=== PATIENT | female | born 1995 | race Caucasian/White ===

== ENCOUNTER 2017-03-20 10:27 | Emergency (ER) | payer OTHER ==
[~2017-03-20] VITALS: Ht 162.6 cm; Wt 86.2 kg
[2017-03-20 10:27] VITALS: BP 142/90
== END 2017-03-20 10:58 | disposition home or self-care (01) ==
LOC: ER 10:30
DX: L03.116 Cellulitis of left lower limb (principal); M41.9 Scoliosis, unspecified; Z88.2 Allergy status to sulfonamides
CPT/HCPCS: 99283; A4606; Z7610